=== PATIENT | male | born 1950 | race Two or more races ===

== ENCOUNTER 2022-01-18 03:53 | Inpatient (IN) | payer OTHER, MEDICAID ==
[~2022-01-18] VITALS: Ht 167.6 cm; Wt 97.9 kg
[2022-01-18] MEDS ORDERED: FUROSEMIDE 40 MG/4 ML VIAL IV ONE (04:15)
[2022-01-18 06:24] LABS: Urine Bacteria NONE SEEN /hpf (None Seen); Urine Blood Negative /uL (Negative); Urine Specific Gravity 1.007 (1.001-1.035); Urine WBC <1 /hpf (0 - 3)
[2022-01-18 07:27] LABS: Basophils # (auto) 0.1 10 ^3/uL (0-0.2); Basophils % (auto) 0.5 % (0.0-2.0); Eosinophils # (auto) 0.3 10 ^3/uL (0-0.8); Eosinophils % (auto) 2.3 % (0.0-7.0); Hematocrit 51.4 % (41.0-53.0); Hemoglobin 17.4 g/dL (13.5-17.5); Lymphocytes # (auto) 1.7 10 ^3/uL (0.4-5.4); Lymphocytes % (auto) 13.4 % (10.0-50.0); Mean Corpuscular Hemoglobin 31.6 pg (28.0-32.0); Mean Corpuscular Hgb Conc. 33.8 g/dL (32.0-36.0); Mean Corpuscular Volume 93.6 fL (80.0-100.0); Monocytes # (auto) 0.6 10 ^3/uL (0-1.3); Monocytes % (auto) 4.7 % (0.0-12.0); Neutrophils % (auto) 79.1 % (37.0-80.0); Nucleated Red Blood Cells % 0.1 %; Red Cell Distribution Width 12.9 % (11.8-14.3); White Blood Cell 12.6 10^3/uL (4.4-10.8)
[2022-01-18 07:38] LABS: Calcium 9.3 mg/dL (8.5-10.1)
[2022-01-18 07:42] LABS: Albumin 4.3 g/dL (3.4-5.0); BUN/Creatinine Ratio 13.6
[2022-01-18 07:44] LABS: Total Protein 7.5 g/dL (6.4-8.2)
[2022-01-18] MEDS ORDERED: cefTRIAXone 1GM/50ML D5W 50 ML IV ONE (07:45)
[2022-01-18] MEDS ORDERED: MORPHINE SULFATE INJ 2 MG/ml SYRG IV PRN (10:15)
[2022-01-18] MEDS ORDERED: NITROGLYCERIN 0.4 MG SL TAB SL PRN (10:15)
[2022-01-18] MEDS ORDERED: DEXTROSE (50%) 50ML SYRG IV PRN (11:15)
[2022-01-18] MEDS ORDERED: ALBUTEROL SULF 2.5 MG/0.5ML(0.5%) NEB SOLN NEB PRN (11:15)
[2022-01-18] MEDS ORDERED: IPRATROPIUM BROM 0.5 MG/2.5ML INH SOL NEB PRN (11:15)
[2022-01-18] MEDS ORDERED: AZITHROMYCIN 500MG/ 250ML 250 ML IV ONE (11:15)
[2022-01-18] MEDS: IPRATROPIUM BROM 0.5 MG/2.5ML INH SOL NEB SCH ×2 (11:28→19:14)
[2022-01-18] MEDS: ALBUTEROL SULF 2.5 MG/0.5ML(0.5%) NEB SOLN NEB SCH ×2 (11:29→19:14)
[2022-01-18 11:32] LABS: Cholesterol 134 mg/dL (< 200)
[2022-01-18 11:35] LABS: HDL Cholesterol 57 mg/dL (40-59); LDL Cholesterol 71 mg/dL (< 100); Triglycerides 110 mg/dL (< 150)
[2022-01-18] MEDS ORDERED: IOHEXOL 350 MG/ML 100ML IJ ONE (11:37)
[2022-01-18] MEDS: ACCU-CHEK COMFORT CURVE STRIP VI SCH ×3 (11:40→22:00)
[2022-01-18] MEDS: InsuLIN REG 1unit/0.01ml Soln (100units/ml) SC SCH ×3 (11:43→22:00)
[2022-01-18] MEDS ORDERED: methylPREDNISolone SOD SUCC 125 MG/2 ML VL IM ONE (15:30)
[2022-01-18] MEDS ORDERED: methylPREDNISolone SOD SUCC 125 MG/2 ML VL IV ONE (16:15)
[2022-01-18 21:01] VITALS: BP 129/57
[2022-01-18 21:27] VITALS: BP 135/44
[2022-01-18] MEDS ORDERED: METO-535 PO (21:56)
[2022-01-18] MEDS ORDERED: LOSA-39 PO (21:58)
[2022-01-18] MEDS ORDERED: ATOR20TA PO (21:58)
[2022-01-18] MEDS ORDERED: METF-370 PO (21:58)
[2022-01-18] MEDS ORDERED: HYDR12.56 PO (21:58)
[2022-01-18 22:00] VITALS: BP 135/44
[2022-01-18] MEDS: methylPREDNISolone SOD SUCC 40 MG/ML VL IV SCH (22:53)
[2022-01-19 05:00] VITALS: BP 153/59
[2022-01-19] MEDS: InsuLIN REG 1unit/0.01ml Soln (100units/ml) SC SCH ×4 (05:48→21:20)
[2022-01-19] MEDS: ACCU-CHEK COMFORT CURVE STRIP VI SCH ×4 (05:52→21:20)
[2022-01-19] MEDS: IPRATROPIUM BROM 0.5 MG/2.5ML INH SOL NEB SCH ×3 (06:30→19:01)
[2022-01-19] MEDS: ALBUTEROL SULF 2.5 MG/0.5ML(0.5%) NEB SOLN NEB SCH ×3 (06:30→19:02)
[2022-01-19 06:46] LABS: Basophils # (auto) 0 10 ^3/uL (0-0.2); Basophils % (auto) 0.1 % (0.0-2.0); Eosinophils # (auto) 0 10 ^3/uL (0-0.8); Hematocrit 47.5 % (41.0-53.0); Lymphocytes # (auto) 0.6 10 ^3/uL (0.4-5.4); Lymphocytes % (auto) 5.4 % (10.0-50.0); Mean Corpuscular Hemoglobin 31.4 pg (28.0-32.0); Mean Corpuscular Hgb Conc. 33.8 g/dL (32.0-36.0); Mean Corpuscular Volume 93.1 fL (80.0-100.0); Monocytes # (auto) 0.2 10 ^3/uL (0-1.3); Monocytes % (auto) 1.8 % (0.0-12.0); Neutrophils # (auto) 9.9 10 ^3/uL (1.6-8.6); Neutrophils % (auto) 92.7 % (37.0-80.0); Nucleated Red Blood Cells % 0.1 %; Red Cell Distribution Width 13.2 % (11.8-14.3); White Blood Cell 10.7 10^3/uL (4.4-10.8)
[2022-01-19 06:55] LABS: Potassium 3.5 mmol/L (3.5-5.1)
[2022-01-19 07:00] LABS: Albumin 3.6 g/dL (3.4-5.0); BUN/Creatinine Ratio 18.5; Calcium 8.7 mg/dL (8.5-10.1)
[2022-01-19 07:03] LABS: Bilirubin, Total 0.6 mg/dL (0.2-1.0); Total Protein 7.5 g/dL (6.4-8.2)
[2022-01-19 08:52] VITALS: BP 110/67
[2022-01-19] MEDS: AZITHROMYCIN 500MG/ 250ML 250 ML IV SCH ×2 (10:02→12:22)
[2022-01-19] MEDS: methylPREDNISolone SOD SUCC 40 MG/ML VL IV SCH ×2 (10:02→21:20)
[2022-01-19] MEDS: ENOXAPARIN SOD 40 MG/0.4 ML SYRINGE SC SCH (10:03)
[2022-01-19] MEDS ORDERED: FUROSEMIDE 20 MG/2 ML VIAL IV SCH (12:00)
[2022-01-19 12:39] VITALS: BP 97/55
[2022-01-19] MEDS: DOXYCYCLINE 100MG/250ML 250 ML IV SCH (16:04)
[2022-01-19 16:36] VITALS: BP 123/68
[2022-01-19 22:00] VITALS: BP 120/52
[2022-01-20] VITALS (7 sets, daily range): BP systolic 118–149; BP diastolic 55–72
[2022-01-20] MEDS: DOXYCYCLINE 100MG/250ML 250 ML IV SCH ×2 (01:31→14:47)
[2022-01-20] MEDS: InsuLIN REG 1unit/0.01ml Soln (100units/ml) SC SCH ×4 (06:32→22:13)
[2022-01-20] MEDS: ACCU-CHEK COMFORT CURVE STRIP VI SCH ×4 (06:32→22:13)
[2022-01-20] MEDS: ALBUTEROL SULF 2.5 MG/0.5ML(0.5%) NEB SOLN NEB SCH ×3 (07:24→18:43)
[2022-01-20] MEDS: IPRATROPIUM BROM 0.5 MG/2.5ML INH SOL NEB SCH ×3 (07:24→18:43)
[2022-01-20] MEDS: ENOXAPARIN SOD 40 MG/0.4 ML SYRINGE SC SCH (10:27)
[2022-01-20] MEDS: methylPREDNISolone SOD SUCC 40 MG/ML VL IV SCH ×2 (10:27→22:11)
[2022-01-20] MEDS ORDERED: IPRIH IN (12:57)
[2022-01-20] MEDS ORDERED: DOXY-332 PO (12:57)
[2022-01-20] MEDS ORDERED: ALBUAER3 IN (12:57)
[2022-01-20] MEDS ORDERED: PRED20TA2 PO (12:57)
[2022-01-21] MEDS: DOXYCYCLINE 100MG/250ML 250 ML IV SCH ×2 (02:04→13:52)
[2022-01-21 05:00] VITALS: BP 134/84
[2022-01-21] MEDS: InsuLIN REG 1unit/0.01ml Soln (100units/ml) SC SCH ×4 (06:38→17:32)
[2022-01-21] MEDS: ACCU-CHEK COMFORT CURVE STRIP VI SCH ×4 (06:39→17:58)
[2022-01-21] MEDS: IPRATROPIUM BROM 0.5 MG/2.5ML INH SOL NEB SCH ×3 (07:05→18:28)
[2022-01-21] MEDS: ALBUTEROL SULF 2.5 MG/0.5ML(0.5%) NEB SOLN NEB SCH ×3 (07:05→18:28)
[2022-01-21 08:00] VITALS: BP_SYST 149; BP_SYST 160; BP_DIAS 70
[2022-01-21 08:15] VITALS: BP 135/84
[2022-01-21] MEDS: methylPREDNISolone SOD SUCC 40 MG/ML VL IV SCH (09:03)
[2022-01-21] MEDS: ENOXAPARIN SOD 40 MG/0.4 ML SYRINGE SC SCH (09:04)
[2022-01-21 12:00] VITALS: BP 159/60
[2022-01-21] MEDS ORDERED: METOPROLOL TARTRATE 25 MG TAB PO SCH (14:15)
[2022-01-21 16:00] VITALS: BP 156/74
[2022-01-21 16:16] VITALS: BP 141/75
== END 2022-01-21 20:36 | disposition home or self-care (01) | DRG 189 ==
LOC: ER 03:53 → TELE 10:14 → TELE-WESTW 21:06
PROVIDERS: ADMIT Registered Nurse; ATTEND Internal Medicine
DX: J96.21 Acute and chronic respiratory failure with hypoxia (principal); J44.1 Chronic obstructive pulmonary disease with (acute) exacerbation; J98.11 Atelectasis; E11.9 Type 2 diabetes mellitus without complications; E66.01 Morbid (severe) obesity due to excess calories; E78.5 Hyperlipidemia, unspecified; I10 Essential (primary) hypertension; R79.89 Other specified abnormal findings of blood chemistry; Z20.822 Contact with and (suspected) exposure to COVID-19; F17.200 Nicotine dependence, unspecified, uncomplicated; I35.0 Nonrheumatic aortic (valve) stenosis; Z82.49 Family history of ischemic heart disease and other diseases of the circulatory system; Z95.0 Presence of cardiac pacemaker; Z79.899 Other long term (current) drug therapy; Z68.34 Body mass index [BMI] 34.0-34.9, adult
CPT/HCPCS: 36415; 36600; 71045; 71275; 80053; 80061; 81001; 82805; 82962; 83036; 83605; 83880; 84443; 84484; 85025; 87040; 87426; 93005; 93306; 94640; 96365; 96367; 96375; 99291; G0378; J0696; J1815; J3490

== ENCOUNTER 2022-04-03 23:44 | Emergency (ER) | payer OTHER, MEDICAID ==
[~2022-04-03] VITALS: Ht 172.7 cm; Wt 100.0 kg
[~2022-04-03 23:44] MED LIST: ALBUAER3 IN; ATOR20TA PO; DOXY-332 PO; IPRIH IN; METF-370 PO; METO-535 PO; PRED20TA2 PO
[2022-04-03] MEDS ORDERED: EPINEPHrine HCL 1 MG/10 ML SYRG IV ONE (23:45)
[2022-04-03] MEDS ORDERED: CALCIUM CHLOR(10%) 100MG/ML 10ML SYRINGE IV ONE (23:45)
[2022-04-03] MEDS ORDERED: MAGNESIUM SULF 50% 40 MEQ/10 ML VL IV ONE (23:45)
[2022-04-03] MEDS ORDERED: SODIUM BICARBONATE 8.4% INJ 50ML SYRINGE IV ONE (23:45)
[2022-04-03] MEDS ORDERED: AMIODARONE HCL (50 MG/ ML) 3 ML VIAL IV ONE (23:45)
[2022-04-03] MEDS ORDERED: LIDOCAINE HCL 100 MG/5ML (2%) SYRG INJ IV ONE (23:45)
[2022-04-04] MEDS ORDERED: SODIUM BICARBONATE 8.4% INJ 50ML SYRINGE ONE (00:03)
[2022-04-04] MEDS ORDERED: EPINEPHrine HCL 1 MG/10 ML SYRG ONE ×2 (00:08→00:13)
== END 2022-04-04 00:14 ==
LOC: EDUNIT# 23:44 → ER 23:44 → EDBD 23:44 → ER 04-04 00:14
DX: H57.04 Mydriasis (principal); R06.89 Other abnormalities of breathing; I11.0 Hypertensive heart disease with heart failure; I50.9 Heart failure, unspecified; E11.9 Type 2 diabetes mellitus without complications; E78.5 Hyperlipidemia, unspecified; Z87.891 Personal history of nicotine dependence
CPT/HCPCS: 31500; 92950; 99285; J0171; J0282; J3475